=== PATIENT | female | born 1985 | race American Indian/Alaskan Native ===

== ENCOUNTER 2018-10-08 18:27 | Emergency (ER) | payer SELFPAY ==
--- NOTE | 2018-10-08 18:43 | Emergency Department Report ---
Blank Doc - Documentation Documentation: This is a 33-year-old female that presents with sore throat, cough, body aches, and fever with chills. Stated started to take Theraflu today. Denies any other complaints. This initial assessment diagnostic orders/clinical plan/treatment(s) is/are subject to change based on patient's health status, clinical progression and re- assessment by fellow clinical providers in the ED. Further treatment and workup at subsequent clinical providers discretion. Patient/guardians urged not to elope from ED s their condition may be serious if not clinically assessed and managed. Initial orders include: 1-Patient sent to [facility] for further evaluation and treatment. 2- chest xray
[2018-10-08 18:44] VITALS: BP 132/87
[2018-10-08] MEDS ORDERED: IBUPROFEN PO ONE (19:06)
[2018-10-08] MEDS ORDERED: TESSALON PERLES PO ONE (19:55)
--- NOTE | 2018-10-08 20:00 | Emergency Department Report ---
- General Chief Complaint: Pain General Stated Complaint: FLU LIKE Time Seen by Provider: 10/08/18 18:42 Source: patient Mode of arrival: Ambulatory Limitations: No Limitations - History of Present Illness Initial Comments: 33-year-old has -[place] female comes in complaining of fever, chills, sore throat and body aches times one day. Patient also reports a nonproductive cough. Patient reports that this started this morning. She patient reports her temperature at home was 101. Patient reports she took [id number] TheraFlu which she reports did not relieve her symptoms. Patient also complains of chest pain with cough. Patient denies any past medical history except a LEEP. Patient reports she is currently on control. She has no known drug allergies. Her primary care providers that we will start family medical. MD Complaint: fever, cough, sore throat -: This morning Severity scale (0 -10): 10 Consistency: constant Improves With: nothing Worsens With: nothing Associated Symptoms: fever, chills, myalgias (cough), sore throat, cough, chest pain. denies: headache, rhinorrhea, nasal congestion, abdominal pain, nausea, vomiting, diarrhea, dysuria Treatments Prior to Arrival: "cold medicine" - Related Data Previous Rx's Medication Instructions Recorded Last Taken Type Benzonatate [Tessalon Perle] 100 mg PO TID #15 capsule 10/08/18 Unknown Rx Ibuprofen [Motrin 600 MG tab] 600 mg PO Q8H PRN #15 tablet 10/08/18 Unknown Rx Allergies Allergy/AdvReac Type Severity Reaction Status Date / Time No Known Allergies Allergy Unverified 10/08/18 18:44 ED Review of Systems ROS: Stated complaint: FLU LIKE Other details as noted in HPI Comment: All other systems reviewed and negative Constitutional: chills, fever Eyes: denies: eye pain, eye discharge, vision change ENT: throat pain Respiratory: cough. denies: shortness of breath, SOB with exertion, wheezing Cardiovascular: chest pain (cough) Endocrine: no symptoms reported Gastrointestinal: denies: abdominal pain, nausea, diarrhea Genitourinary: denies: urgency, dysuria, discharge Musculoskeletal: denies: back pain, joint swelling, arthralgia Skin: denies: rash, lesions Neurological: denies: headache, weakness, paresthesias Psychiatric: denies: anxiety, depression Hematological/Lymphatic: denies: easy bleeding, easy bruising ED Past Medical Hx - Past Medical History Previous Medical History?: No - Surgical History Additional Surgical History: LEAP - Social History Smoking Status: Never Smoker Substance Use Type: Alcohol - Medications Home Medications: Home Medications Medication Instructions Recorded Confirmed Last Taken Type Benzonatate [Tessalon Perle] 100 mg PO TID #15 capsule 10/08/18 Unknown Rx Ibuprofen [Motrin 600 MG tab] 600 mg PO Q8H PRN #15 tablet 10/08/18 Unknown Rx ED Physical Exam - General Limitations: No Limitations General appearance: alert, in no apparent distress - Head Head exam: Present: atraumatic, normocephalic - Eye Eye exam: Present: PERRL - ENT ENT exam: Present: mucous membranes moist - Neck Neck exam: Present: tenderness (right tonsillar), full ROM - Respiratory Respiratory exam: Present: normal lung sounds bilaterally, other (coughing due on exam). Absent: respiratory distress - Cardiovascular Cardiovascular Exam: Present: tachycardia - GI/Abdominal GI/Abdominal exam: Present: soft, normal bowel sounds. Absent: distended, tenderness - Back Exam Back exam: Present: normal inspection - Neurological Exam Neurological exam: Present: alert, oriented X3 - Psychiatric Psychiatric exam: Present: normal affect, normal mood - Skin Skin exam: Present: warm, dry, intact, normal color. Absent: rash ED Course Vital Signs 10/08/18 18:42 Temperature 100.3 F H Pulse Rate 99 H Respiratory 20 Rate Blood Pressure 132/87 O2 Sat by Pulse 99 Oximetry ED Medical Decision Making - Radiology Data Radiology results: report reviewed FINAL REPORT PROCEDURE: XR CHEST ROUTINE 2V TECHNIQUE: PA and lateral chest radiographs were obtained. CPT 82402 HISTORY: cough COMPARISON: No prior studies are available for comparison. FINDINGS: Heart: Normal. Mediastinum/Vessels: Normal. Lungs/Pleural space: Normal. Bony thorax: No acute osseous abnormality. Other: IMPRESSION: Normal examination. Transcribed By: [facility] [place] Dictated By: RADHA GREEN Electronically Authenticated By: RADHA GREEN Signed Date/Time: 10/08/182017 DD/ 16 TD/TT: 10/08/182016 - Medical Decision Making Patient has been evaluated by this provider fast heart. Ibuprofen given in triage for pain and fever management. Tessalon Perles in order an [facility] for cough. Chest x-ray is pending Critical care attestation.: If time is entered above; I have spent that time in minutes in the direct care of this critically ill patient, excluding procedure time. ED Disposition Clinical Impression: Viral syndrome Disposition: DC-[id number] TO HOME OR SELFCARE Is pt being admited?: No Does the pt Need Aspirin: No Condition: Stable Instructions: Viral Syndrome (ED) Additional Instructions: Please take pain medication as needed for body aches fever sore throat. Please take Tessalon Perles for cough. Please increase your fluid intake and advance her diet as tolerated for symptoms persists please follow-up which her primary care provider at [facility]. Prescriptions: Benzonatate [Tessalon Perle] 100 mg PO TID #15 capsule Ibuprofen [Motrin 600 MG tab] 600 mg PO Q8H PRN #15 tablet PRN Reason: Pain Referrals: XIANG MORALES MD [Primary Care Provider] - 3-5 Days Forms: Work/School Release Form(ED)
--- NOTE | 2018-10-08 20:18 | XRay Report ---
FINAL REPORT PROCEDURE: XR CHEST ROUTINE 2V TECHNIQUE: PA and lateral chest radiographs were obtained. CPT 96459 HISTORY: cough COMPARISON: No prior studies are available for comparison. FINDINGS: Heart: Normal. Mediastinum/Vessels: Normal. Lungs/Pleural space: Normal. Bony thorax: No acute osseous abnormality. Other: IMPRESSION: Normal examination.
== END 2018-10-08 20:55 | disposition home or self-care (01) ==
LOC: ED 18:27
DX: B34.9 Viral infection, unspecified (principal)
CPT/HCPCS: 71046